=== PATIENT | female | born 1995 | race Caucasian/White ===

== ENCOUNTER 2016-06-22 12:03 | Emergency (ER) | payer OTHER ==
[2016-06-22 12:13] VITALS: BP 131/69; PULSE 98; RESP 16; TEMP 98.4; O2SAT 100
--- NOTE | 2016-06-22 12:43 | UCPHY ---
H & P Time Seen by Provider: 06/22/16 12:21 Patient Type: Established HPI/ROS: Patient presents with a chief complaint of pain in her left great toe which began yesterday. She has noticed that movement particularly dorsiflexion is painful as is walking. She denies any history of trauma. She is well otherwise. Smoking Status: Current every day smoker Physical Exam: This is a well-developed well-nourished female who is in no acute distress except when the left great toe is moved. Passive dorsiflexion is quite painful. Tenderness seems to be maximal at the IP joint although there is some tenderness over the extensor surface of the proximal phalanx. There are no findings at the MP joint. CMS is intact. The patient has a slight hammertoe which she says is normal for her. Her toes are chili which she also says is normal. Constitutional: Initial Vital Signs Temperature (C) 36.9 C 06/22/16 12:08 Heart Rate 98 06/22/16 12:08 Respiratory Rate 16 06/22/16 12:08 Blood Pressure 131/69 H 06/22/16 12:08 O2 Sat (%) 100 06/22/16 12:08 O2 Delivery Mode Room Air Allergies/Adverse Reactions: No Known Allergies Allergy (Verified 06/22/16 12:13) Home Medications: Medication Instructions Recorded Buspar (RX) 04/23/15 Latuda 04/23/15 Vistaril 06/22/16 Medical Decision Making - Diagnostics Imaging: An x-ray of the toe is normal. Differential Diagnosis: Because of this patient's pain is unclear. There is no evidence of any neurovascular dysfunction. Infection is a possibility however there is no erythema and no significant swelling and therefore am unwilling to prescribe antibiotics at this time. The patient understands that infection is a possibility and she will return if she develops any symptoms suggestive of infection. Departure - Departure Disposition: Home, Routine, Self-Care Clinical Impression: Toe pain, left Condition: Good Instructions: Arthralgia (ED) Additional Instructions: If your symptoms have not resolved in 5 or 6 days you should be re-evaluated if in the meantime the pain worsens, he notice swelling or discoloration you should be seen right away. Apply ice to your toe today and then switch to heat tomorrow do this several times daily. Avoid painful activities. Adult Pain & Fever Control: We recommend Acetaminophen (Tylenol) and Ibuprofen (Motrin, Advil) for pain and fever control. When fever is high or pain severe, both drugs can be used at the same time, but at different intervals. Please note the time differences. Your dose is: Acetaminophen [650]mg every 4 to 6 hours ibuprofen [600]mg every [6] hours with food OR naproxen Sodium (Aleve) [440]mg every 12 hours. Note: do not take Acetaminophen with Hydrocodone (Vicodin, Lortab) or Oxycodone (Percocet). These medications also contain Acetaminophen. No more than 3000 mg of Acetaminophen should be taken in 24 hours (for an adult) . The maximal dose of ibuprofen that it is safe in a 24-hour period is 2400 mg. You may take 400 mg every 4 hours, 600 mg every 6 hours or 800 mg every 8 hours safely. Referrals: Rupa Mendoza MD [Primary Care Provider] - As per Instructions - PQRS PQRS Measurement: Not applicable
== END 2016-06-22 13:14 | disposition home or self-care (01) ==
LOC: CED 12:03
DX: M79.675 Pain in left toe(s) (principal); F17.200 Nicotine dependence, unspecified, uncomplicated
CPT/HCPCS: 73660-PO; G0463-PO

== ENCOUNTER 2016-10-28 16:44 | Emergency (ER) | payer OTHER ==
[2016-10-28 16:50] VITALS: O2SAT 97
--- NOTE | 2016-10-28 17:19 | EDPHY ---
H & P Stated Complaint: freq incidents of feeling pre syncopal Time Seen by Provider: 10/28/16 17:02 HPI/ROS: CHIEF COMPLAINT: Near syncopal episodes x 8 years HISTORY OF PRESENT ILLNESS: 21-year-old female in the ER via private vehicle with mother stating that for the past 8 years she will experience frequent episodes of syncope and near-syncope. She has never had this evaluated. 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 She had an episode earlier today which she fight felt near syncopal. She describes that during almost every 1 of these episodes she will feel hot, sweaty, diffuse tingling sensation and she will need to sit or lay down and the symptoms will resolve. She also notes that she drinks juice the symptoms resolve. She has had full syncopal episodes, most recently 1 year ago. No trauma. No chest pain. No palpitations. No nausea or vomiting. No postictal episodes. No incontinence. No oral trauma. PRIMARY CARE PROVIDER: [place] REVIEW OF SYSTEMS: A ten point review of systems was performed and is negative with the exception of the items mentioned in the HPI PAST MEDICAL & SURGICAL HISTORY: history of eating disorder, currently is controlled SOCIAL HISTORY:nonsmoker FAMILY HISTORY: No family history of seizure disorder PHYSICAL EXAM (Prior to examination, patient consented to physical exam, hands were washed and my usual and customary physical exam procedures followed) 1) GENERAL: Well-developed, well-nourished, alert and oriented. Appears to be in no acute distress. 2) HEAD: Normocephalic, atraumatic 3) HEENT: Pupils equal, round, reactive to light bilaterally. Sclera anicteric. 4) NECK: Full range of motion, no meningeal signs. 5) LUNGS: Clear auscultation bilaterally, no wheezes, no rhonchi, no retractions. 6) HEART: Regular rate and rhythm, no murmur, no heave, no gallop. 7) ABDOMEN: No guarding, no rebound, no focal tenderness, negative McBurney's, negative Santo's, negative Rovsing's, negative peritoneal sign, 8) MUSCULOSKELETAL: Moving all extremities, no focal areas of tenderness, no obvious trauma. No peripheral edema or discoloration. 9) BACK: No CVA tenderness, no midline vertebral tenderness, no fluctuance, no step-off, no obvious trauma, no visual or palpable abnormality. 10) SKIN: No rash, no petechiae. 11) Psychiatric: Patient is oriented X 3, there is no agitation. 12) NEURO: Awake, alert, and oriented to person, place and time. Answers questions appropriately. There were no obvious focal neurologic abnormalities. No cerebellar dysfunction. normal steady gait. Upper and lower extremities bilaterally with strength 5 / 5, reflexes 2+. DIFFERENTIAL DIAGNOSIS: in no particular include but not limited to paroxysmal hypoglycemia, CVA, arrhythmia, seizure disorder - Personal History LMP (Females 10-55): 1-7 Days Ago Current Tetanus/Diphtheria Vaccine: Yes Tetanus Vaccine Date: within 10 years - Medical/Surgical History Hx Asthma: No Hx Chronic Respiratory Disease: No Hx Diabetes: No Hx Cardiac Disease: No Hx Renal Disease: No Hx Cirrhosis: No Hx Alcoholism: No Hx HIV/AIDS: No Hx Splenectomy or Spleen Trauma: No Other PMH: major depressive disorder. 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 - Social History Smoking Status: Current every day smoker Constitutional: Initial Vital Signs Temperature (C) 36.9 C 10/28/16 16:47 Heart Rate 94 10/28/16 16:47 Respiratory Rate 20 10/28/16 16:47 Blood Pressure 121/65 H 10/28/16 16:47 O2 Sat (%) 97 10/28/16 16:47 O2 Delivery Mode Room Air Allergies/Adverse Reactions: No Known Allergies Allergy (Verified 10/28/16 16:47) Home Medications: Medication Instructions Recorded Buspar (RX) 04/23/15 Latuda 04/23/15 Vistaril 06/22/16 Medical Decision Making ED Course/Re-evaluation: 6:07 p.m.: Patient has been re-evaluated with serial examinations, serial neurologic exams performed and she remains with a nonfocal exam. Discussed case with Dr. Grullon in the emergency department. The patient describes syncopal and presyncopal episodes for several years which resolved with lying down and with drinking juice. In talking to the patient these do not sound like seizure related episodes however I have recommended follow-up with Neurology and I have also recommend follow up with Cardiology as well as her primary care provider. She notes that these episodes only happen when she is standing and never happen when she is driving. Nonetheless I recommend she exercise caution and recommended avoid climbing structures and similar. - Data Points Laboratory Results: Laboratory Results 10/28/16 17:14 10/28/16 17:14 10/28/16 10/28/16 10/28/16 17:14 17:14 17:14 WBC 9.03 10^3/uL 10^3/uL (3.80-9.50) RBC 4.80 10^6/uL 10^6/uL (4.18-5.33) Hgb 15.2 g/dL g/dL (12.6-16.3) Hct 43.4 % % (38.0-47.0) MCV 90.4 fL fL (81.5-99.8) MCH 31.7 pg pg (27.9-34.1) MCHC 35.0 g/dL g/dL (32.4-36.7) RDW 13.1 % % (11.5-15.2) Plt Count 291 10^3/uL 10^3/uL (150-400) MPV 10.8 fL fL (8.7-11.7) Neut % (Auto) 64.1 % % (39.3-74.2) Lymph % (Auto) 23.6 % % (15.0-45.0) [place] % (Auto) 8.0 % % (4.5-13.0) Eos % (Auto) 3.5 % % (0.6-7.6) Baso % (Auto) 0.6 % % (0.3-1.7) Nucleat RBC Rel Count 0.0 % % (0.0-0.2) Absolute Neuts (auto) 5.79 10^3/uL 10^3/uL (1.70-6.50) Absolute Lymphs (auto) 2.13 10^3/uL 10^3/uL (1.00-3.00) Absolute Monos (auto) 0.72 10^3/uL 10^3/uL (0.30-0.80) Absolute Eos (auto) 0.32 10^3/uL 10^3/uL (0.03-0.40) Absolute Basos (auto) 0.05 10^3/uL 10^3/uL (0.02-0.10) Absolute Nucleated RBC 0.00 10^3/uL 10^3/uL (0-0.01) Immature Gran % 0.2 % % (0.0-1.1) Immature Gran # 0.02 10^3/uL 10^3/uL (0.00-0.10) Sodium 141 mEq/L mEq/L (134-144) Potassium 4.3 mEq/L mEq/L (3.5-5.2) Chloride 108 mEq/L mEq/L (97-110) Carbon Dioxide 22 mEq/l mEq/l (22-31) Anion Gap 11 mEq/L mEq/L (8-16) BUN 17 mg/dL mg/dL (7-23) Creatinine 0.9 mg/dL mg/dL (0.6-1.0) Estimated GFR > 60 Glucose 100 mg/dL mg/dL (70-100) Calcium 10.1 mg/dL mg/dL (8.5-10.4) Beta HCG, Qual NEGATIVE Departure - Departure Disposition: Home, Routine, Self-Care Clinical Impression: Pre-syncope Condition: Good Instructions: Syncope (ED) Additional Instructions: Call 911 if you develop similar episodes. Stay hydrated, eat food and keep food with you. do not climb. Referrals: [facility] [Provider Group] - 2-3 days, call for appt. Dk Adams MD [Medical Doctor] - 2-3 days, call for appt. (Dr. Adams is a assembler wire mesh gate) Michael Reyes MD [Medical Doctor] - 2-3 days, call for appt. (Dr. Reyes is a neurologist) Stand Alone Forms: Work Excuse
--- NOTE | 2016-10-28 17:20 | CPEKG ---
Heart Rate: 81 RR Interval: 741 P-R Interval: 132 QRSD Interval: 86 QT Interval: 364 QTC Interval: 423 P Ke[place]: 58 QRS [place]: 70 T Wave [place]: 40 EKG Severity - BORDERLINE ECG - EKG Impression: SINUS RHYTHM EKG Impression: PROBABLE LEFT ATRIAL ABNORMALITY Electronically Signed By: Roldan Grullon 28-Oct-2016 17:53:12
[2016-10-28 17:40] LABS: % IMMATURE GRANULYOCYTES 0.2 % (0.0-1.1); ABSOLUTE IMMATURE GRANULOCYTES 0.02 10^3/uL (0.00-0.10); ADD DIFF? NO; ADD MORPH? NO; ADD SCAN? NO; ATYPICAL LYMPHOCYTE FLAG 20 (0-99); FRAGMENT RBC FLAG 0 (0-99); HEMATOCRIT 43.4 % (38.0-47.0); HEMOGLOBIN 15.2 g/dL (12.6-16.3); LEFT SHIFT FLG 0 (0-99); LIPEMIA HEMOLYSIS FLAG 90 (0-99); MEAN CELL HEMOGLOBIN 31.7 pg (27.9-34.1); MEAN CELL VOLUME 90.4 fL (81.5-99.8); MEAN PLATELET VOLUME 10.8 fL (8.7-11.7); PLATELET CLUMPS FLAG 0 (0-99); PLATELET COUNT 291 10^3/uL (150-400); RED CELL DISTRIBUTION WIDTH 13.1 % (11.5-15.2)
[2016-10-28 17:54] LABS: ANION GAP 11 mEq/L (8-16); CALCIUM 10.1 mg/dL (8.5-10.4); CARBON DIOXIDE 22 mEq/l (22-31); CHLORIDE 108 mEq/L (97-110); CREATININE 0.9 mg/dL (0.6-1.0); GLOMERULAR FILTRATION RATE > 60; GLUCOSE 100 mg/dL (70-100); POTASSIUM 4.3 mEq/L (3.5-5.2); SODIUM 141 mEq/L (134-144)
[2016-10-28 18:20] VITALS: BP 108/58; PULSE 73; RESP 16; TEMP 98.8
== END 2016-10-28 18:20 | disposition home or self-care (01) ==
DX: R55 Syncope and collapse (principal); F17.200 Nicotine dependence, unspecified, uncomplicated

== ENCOUNTER 2017-11-06 19:30 | Emergency (ER) | payer OTHER ==
--- NOTE | 2017-11-06 19:53 | EDPHY ---
H & P Stated Complaint: Buspar and Latuda OD (Approx 20-30 pills) Time Seen by Provider: 11/06/17 19:37 HPI/ROS: CHIEF COMPLAINT: Intentional overdose HISTORY OF PRESENT ILLNESS: The patient presents to the ED after she intentionally overdosed on her Latuda and BuSpar. She is unable to quantify how many pills she took. She currently denies any symptoms of chest pain, headache, lightheadedness, dizziness or paresthesias. The patient reports that this is a compulsion in that she was not overtly suicidal. Patient denies any additional co ingestion or attempted self-harm. The patient does have a history of multiple overdoses in the past. The patient reports she vomited nearly 10 min after taking the pills. She vomited multiple pill fragments. She has no acute complaints. The ingestion was at 6:00 p.m.. The patient is accompanied by family members. She does contract for safety. Family members report that they feel comfortable with her being discharged from the emergency department. REVIEW OF SYSTEMS: A comprehensive 10 point review of systems is otherwise negative aside from elements mentioned in the history of present illness. Source: Patient, Family Exam Limitations: No limitations - Personal History LMP (Females 10-55): 1-7 Days Ago Tetanus Vaccine Date: within 10 years - Medical/Surgical History Hx Asthma: No Hx Chronic Respiratory Disease: No Hx Diabetes: No Hx Cardiac Disease: No Hx Renal Disease: No Hx Cirrhosis: No Hx Alcoholism: No Hx HIV/AIDS: No Hx Splenectomy or Spleen Trauma: No Other PMH: major depressive disorder. 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) self cutting - Social History Smoking Status: Current every day smoker - Physical Exam Exam: General Appearance: Alert, no distress Eyes: Pupils equal and round no pallor or injection ENT, Mouth: Mucous membranes moist Respiratory: There are no retractions, lungs are clear to auscultation Cardiovascular: Regular rate and rhythm Gastrointestinal: Abdomen is soft and nontender, no masses, bowel sounds normal Neurological: A&O, normal motor function, normal sensory exam, normal cranial nerves Skin: Warm and dry, no rashes Musculoskeletal: Neck is supple nontender Extremities: symmetrical, full range of motion Psychiatric: Patient is oriented X 3, there is no agitation, denies suicidal or homicidal ideation Constitutional: Initial Vital Signs Temperature (C) 36.6 C 11/06/17 19:33 Heart Rate 110 H 11/06/17 19:33 Respiratory Rate 18 11/06/17 19:33 O2 Sat (%) 100 11/06/17 19:33 O2 Delivery Mode Room Air Allergies/Adverse Reactions: No Known Allergies Allergy (Verified 10/28/16 16:47) Home Medications: Medication Instructions Recorded Buspar (RX) 04/23/15 Latuda 04/23/15 Medical Decision Making - Diagnostics EKG Interpretation: EKG: Complete interpretation has been separately recorded in the [employer] archive. Summary impression: Sinus rhythm, rate 78 ED Course/Re-evaluation: The patient presents to the ED after an intentional ingestion of BuSpar and Latuda. The patient vomited nearly immediately following the ingestion. The patient is common cooperative. She presented to the ED because she was concerned that her ingestion would cause her harm. She has no acute complaints of chest pain, shortness of breath or other concerns. The patient is accompanied by family members who feel that she is safe to be discharged. At this point time she does not meet criteria for 72 hr mental health hold. In terms of her ingestion she is exhibiting no neurologic symptoms. She has no acute complaints. Her EKG is unremarkable in her laboratory studies are within normal limits. Differential Diagnosis: Differential diagnosis considered includes serotonin syndrome, suicidal ideation , electrolyte derangement, arrhythmia, depression - Data Points Laboratory Results: Laboratory Results 11/06/17 19:47 11/06/17 19:47 11/06/17 11/06/17 11/06/17 19:47 19:47 19:47 WBC RBC Hgb Hct MCV MCH MCHC RDW Plt Count MPV Neut % (Auto) Lymph % (Auto) [place] % (Auto) Eos % (Auto) Baso % (Auto) Nucleat RBC Rel Count Absolute Neuts (auto) Absolute Lymphs (auto) Absolute Monos (auto) Absolute Eos (auto) Absolute Basos (auto) Absolute Nucleated RBC Immature Gran % Immature Gran # Sodium 136 mEq/L mEq/L (135-145) Potassium 3.8 mEq/L mEq/L (3.3-5.0) Chloride 105 mEq/L mEq/L (97-110) Carbon Dioxide 22 mEq/l mEq/l (22-31) Anion Gap 9 mEq/L mEq/L (8-16) BUN 15 mg/dL mg/dL (7-23) Creatinine 0.8 mg/dL mg/dL (0.6-1.0) Estimated GFR > 60 Glucose 90 mg/dL mg/dL (70-100) Calcium 10.1 mg/dL mg/dL (8.5-10.4) Beta HCG, Qual NEGATIVE Urine Opiates Screen NEGATIVE (NEGATIVE) Urine Barbiturates NEGATIVE (NEGATIVE) Ur Phencyclidine Scrn NEGATIVE (NEGATIVE) Ur Amphetamine Screen NEGATIVE (NEGATIVE) U Benzodiazepines Scrn NEGATIVE (NEGATIVE) Urine Cocaine Screen NEGATIVE (NEGATIVE) U Marijuana (THC) Screen NEGATIVE (NEGATIVE) Ethyl Alcohol < 10 mg/dL mg/dL (0-10) 11/06/17 19:47 WBC 10.27 10^3/uL H 10^3/uL (3.80-9.50) RBC 4.76 10^6/uL 10^6/uL (4.18-5.33) Hgb 14.9 g/dL g/dL (12.6-16.3) Hct 43.5 % % (38.0-47.0) MCV 91.4 fL fL (81.5-99.8) MCH 31.3 pg pg (27.9-34.1) MCHC 34.3 g/dL g/dL (32.4-36.7) RDW 13.3 % % (11.5-15.2) Plt Count 252 10^3/uL 10^3/uL (150-400) MPV 10.5 fL fL (8.7-11.7) Neut % (Auto) 63.4 % % (39.3-74.2) Lymph % (Auto) 25.7 % % (15.0-45.0) [place] % (Auto) 8.5 % % (4.5-13.0) Eos % (Auto) 1.5 % % (0.6-7.6) Baso % (Auto) 0.5 % % (0.3-1.7) Nucleat RBC Rel Count 0.0 % % (0.0-0.2) Absolute Neuts (auto) 6.52 10^3/uL H 10^3/uL (1.70-6.50) Absolute Lymphs (auto) 2.64 10^3/uL 10^3/uL (1.00-3.00) Absolute Monos (auto) 0.87 10^3/uL H 10^3/uL (0.30-0.80) Absolute Eos (auto) 0.15 10^3/uL 10^3/uL (0.03-0.40) Absolute Basos (auto) 0.05 10^3/uL 10^3/uL (0.02-0.10) Absolute Nucleated RBC 0.00 10^3/uL 10^3/uL (0-0.01) Immature Gran % 0.4 % % (0.0-1.1) Immature Gran # 0.04 10^3/uL 10^3/uL (0.00-0.10) Sodium Potassium Chloride Carbon Dioxide Anion Gap BUN Creatinine Estimated GFR Glucose Calcium Beta HCG, Qual Urine Opiates Screen Urine Barbiturates Ur Phencyclidine Scrn Ur Amphetamine Screen U Benzodiazepines Scrn Urine Cocaine Screen U Marijuana (THC) Screen Ethyl Alcohol Departure - Departure Disposition: Home, Routine, Self-Care Clinical Impression: Overdose Condition: Good Instructions: Depression (ED) Additional Instructions: 1. Please follow-up with your regular therapist as scheduled. 2. [facility] does operate a 18/11 psychiatric crisis unit located at [address] [place] [address]. The telephone number for the 24 hour crisis center is [phone]. 3. Please return to the ED if you are feeling suicidal, having thoughts of harming yourself/others or should you feel unsafe or have worsening symptoms. 4. Return to the ED if you are having any chest pain, shortness of breath, irregular heartbeat, headache, neurologic symptoms or other concerns. Referrals: Rupa Mendoza MD [Primary Care Provider] - As per Instructions
[2017-11-06 20:07] LABS: PLATELET COUNT 252 10^3/uL (150-400)
--- NOTE | 2017-11-06 20:18 | CPEKG ---
Heart Rate: 78 RR Interval: 769 P-R Interval: 128 QRSD Interval: 70 QT Interval: 356 QTC Interval: 406 P Breaks: 74 QRS Breaks: 75 T Wave Breaks: 46 EKG Severity - ABNORMAL ECG - EKG Impression: SINUS RHYTHM Electronically Signed By: Parth Wolfe 06-Nov-2017 20:18:52
[2017-11-06 21:11] VITALS: BP 116/73
== END 2017-11-06 21:11 | disposition home or self-care (01) ==
DX: T40.2X2A Poisoning by other opioids, intentional self-harm, initial encounter (principal); T42.6X2A Poisoning by other antiepileptic and sedative-hypnotic drugs, intentional self-harm, initial encounter; F17.200 Nicotine dependence, unspecified, uncomplicated
CPT/HCPCS: 80305; G0480